=== PATIENT | male | born 1980 | race Caucasian/White ===

== ENCOUNTER → 2016-10-14 | Outpatient (CLI) | payer OTHER ==
[~2016-10-14] MED LIST: AMBI10TA PO; LEXA5TAB13 PO; TRAZ100T4 PO; ZOLO100T PO
== END ==
LOC: M SLEEP 20:15
PROVIDERS: ATTEND Internal Medicine Pulmonary Disease
DX: G47.30 Sleep apnea, unspecified (principal)